=== PATIENT | male | born 1990 | race Caucasian/White ===

== ENCOUNTER 2018-08-16 23:22 | Emergency (ER) | payer MEDICAID ==
[2018-08-16 23:30] VITALS: BP 137/93; PULSE 60; RESP 20; TEMP 96; O2SAT 100
== END 2018-08-17 00:05 | disposition home or self-care (01) | DRG 866 ==
LOC: ED 23:22
DX: B34.9 Viral infection, unspecified (principal)
CPT/HCPCS: 99282

== ENCOUNTER 2018-10-30 22:00 | Emergency (ER) | payer MEDICAID, OTHER ==
[2018-10-30] MEDS ORDERED: DIPHENHYDRAMINE 25 MG CAP PO ONE (22:11)
[2018-10-30] MEDS ORDERED: DIPHENHYDRAMINE 25 MG CAP ONE (22:14)
[2018-10-30 22:15] VITALS: RESP 20; TEMP 96.9; O2SAT 96
[2018-10-30 22:40] VITALS: BP 134/82; PULSE 94
== END 2018-10-30 22:22 | disposition home or self-care (01) ==
LOC: ED 22:00
DX: L23.3 Allergic contact dermatitis due to drugs in contact with skin (principal)
CPT/HCPCS: 99282; A9270-GY